=== PATIENT | male | born 1995 | race Caucasian/White ===

== ENCOUNTER 2019-02-08 01:26 | Emergency (ER) | payer BC, MEDICAID ==
[2019-02-08] MEDS: LORAZEPAM 1 MG TAB PO (02:15)
== END 2019-02-08 02:19 | disposition home or self-care (01) ==
LOC: FTE 01:26
DX: S30.860A Insect bite (nonvenomous) of lower back and pelvis, initial encounter (principal); F41.9 Anxiety disorder, unspecified; L08.9 Local infection of the skin and subcutaneous tissue, unspecified; W57.XXXA Bitten or stung by nonvenomous insect and other nonvenomous arthropods, initial encounter; Y92.9 Unspecified place or not applicable
CPT/HCPCS: 99283